=== PATIENT | female | born 1935 | race Caucasian/White ===

== ENCOUNTER 2018-11-18 09:56 | Emergency (ER) | payer OTHER ==
[~2018-11-18] VITALS: Ht 157.5 cm; Wt 65.8 kg
[2018-11-18] MEDS ORDERED: TOPROL XL50 MG (10:03)
[2018-11-18] MEDS ORDERED: FENOFIBRATE48 MG (10:05)
[2018-11-18] MEDS ORDERED: LEVOTHROID (10:05)
[2018-11-18] MEDS ORDERED: ATACAND16 MG (10:05)
[2018-11-18] MEDS ORDERED: QUESTRAN LIGHT210 GM (10:05)
== END 2018-11-18 12:24 | disposition home or self-care (01) ==
LOC: ER 09:56
DX: H11.31 Conjunctival hemorrhage, right eye (principal)

== ENCOUNTER 2021-07-29 13:50 | Outpatient (CLI) | payer OTHER ==
[~2021-07-29 13:50] MED LIST: ATACAND16 MG; FENOFIBRATE48 MG; LEVOTHROID; QUESTRAN LIGHT210 GM; TOPROL XL50 MG
== END 2021-07-29 14:15 | disposition home or self-care (01) ==
LOC: PPH VACUNA 13:50
PROVIDERS: ATTEND Emergency Medicine Pediatric Emergency Medicine
DX: Z23 Encounter for immunization (principal)